=== PATIENT | male | born 1960 | race Caucasian/White ===

== ENCOUNTER 2016-09-23 20:06 | Inpatient (IN) | payer MEDICAID ==
[~2016-09-23] VITALS: Ht 182.9 cm; Wt 96.1 kg
[2016-09-23 20:18] LABS: BASOPHILS % (AUTO) 0.5 % (0.0-2.0); EOSINOPHILS % (AUTO) 0.1 % (1.0-6.0); HEMATOCRIT 40.1 % (41-53); HEMOGLOBIN 13.6 g/dL (13.5-17.5); LYMPHOCYTES # (AUTO) 1.6 K/uL (1.0-4.8); LYMPHOCYTES % (AUTO) 11.4 % (22.0-44.0); MEAN CORPUSCULAR HEMOGLOBIN 33.3 pg (26.0-34.0); MEAN CORPUSCULAR HGB CONC 33.9 G/dL (31.0-37.0); MEAN CORPUSCULAR VOLUME 98 fL (80-100); MONOCYTES # (AUTO) 1.2 K/uL (0.1-1.0); MONOCYTES % (AUTO) 8.2 % (2.0-9.0); NEUTROPHILS # (AUTO) 11.3 K/uL (1.8-7.7); NEUTROPHILS % (AUTO) 79.8 % (40.0-70.0); PLATELET COUNT (AUTO) 308 K/uL (150-450); RED BLOOD CELL COUNT(AUTO) 4.08 MIL/uL (4.50-5.90); RED CELL DISTRIBUTION WIDTH 13.6 % (11.5-14.5); WHITE BLOOD COUNT (AUTO) 14.2 K/uL (4.5-11.0)
[2016-09-23 20:31] LABS: ANION GAP 10 mmol/L (8-16); CALCIUM, TOTAL 8.8 mg/dL (8.8-10.5); CARBON DIOXIDE 24 mmol/L (22-29); CHLORIDE 101 mmol/L (98-107); CREATININE 0.98 mg/dL (0.60-1.30); GLOMERULAR FILTR. RATE CALC > 60 mL/min (>60); POTASSIUM 3.7 mmol/L (3.5-5.1); SODIUM SERUM 135 mmol/L (136-145); UREA NITROGEN, BLOOD 9 mg/dL (7-18)
[2016-09-23 20:39] LABS: ALANINE AMINOTRANSFERASE 35 U/L (12-78); ALBUMIN 4.1 g/dL (3.4-5.0); ASPARTATE AMINOTRANSFERASE 21 U/L (15-37); BILIRUBIN,TOTAL 0.9 mg/dL (0.1-1.0); TOTAL PROTEIN, SERUM 7.9 g/dL (6.4-8.2)
[2016-09-23] MEDS ORDERED: LORazepam 2 MG TABLET PO ONE (20:45)
[2016-09-23] MEDS ORDERED: HALOPERIDOL 5 MG TABLET PO ONE (20:45)
[2016-09-23] MEDS ORDERED: DiphenhydrAMINE HCL 50 MG/ML VIAL IM ONE (22:00)
[2016-09-23] MEDS ORDERED: HALOPERIDOL 5 MG TABLET PO PRN (22:30)
[2016-09-23] MEDS ORDERED: ZOLPIDEM TARTRATE 10 MG TABLET PO PRN (22:30)
[2016-09-24 01:39] VITALS: BP 146/78
[2016-09-24 07:27] VITALS: BP 114/68
[2016-09-24] MEDS: RisperiDONE 2 MG TABLET PO SCH ×2 (10:33→20:35)
[2016-09-24] MEDS: LORazepam 2 MG TABLET PO PRN (10:34)
[2016-09-24 12:46] VITALS: BP 114/72
[2016-09-24 16:50] VITALS: BP 132/74
[2016-09-24] MEDS ORDERED: IBUPROFEN 400 MG TABLET PO PRN (21:15)
[2016-09-24] MEDS ORDERED: ACETAMINOPHEN 325 MG TABLET PO PRN (21:15)
[2016-09-25 06:39] VITALS: BP 120/76
[2016-09-25 07:17] LABS: HEMOGLOBIN A1C 5.6 % (4.5-6.2)
[2016-09-25 07:26] LABS: THYROID STIMULATING HORMONE 1.79 uIU/mL (0.36-3.74)
[2016-09-25] MEDS: RisperiDONE 2 MG TABLET PO SCH ×2 (08:23→16:36)
[2016-09-25 08:30] VITALS: BP 118/77
[2016-09-25 19:17] VITALS: BP 122/76
[2016-09-26 08:35] VITALS: BP 143/90
[2016-09-26] MEDS: RisperiDONE 2 MG TABLET PO SCH (08:39)
[2016-09-26] MEDS: LORazepam 2 MG TABLET PO PRN (09:08)
[2016-09-26] MEDS ORDERED: RISP2 PO (10:59)
== END 2016-09-26 14:05 | disposition home or self-care (01) | DRG 751 ==
LOC: EMS 20:08 → AHU 09-24 00:05 → 3EI 09-24 16:31
PROVIDERS: ADMIT Psychiatry & Neurology Child & Adolescent Psychiatry; ATTEND Psychiatry & Neurology Child & Adolescent Psychiatry
DX: F29 Unspecified psychosis not due to a substance or known physiological condition (principal); E87.1 Hypo-osmolality and hyponatremia; F15.20 Other stimulant dependence, uncomplicated; F20.9 Schizophrenia, unspecified; F31.9 Bipolar disorder, unspecified; F32.9 Major depressive disorder, single episode, unspecified; D72.829 Elevated white blood cell count, unspecified; F99 Mental disorder, not otherwise specified; Z71.51 Drug abuse counseling and surveillance of drug abuser; Z79.899 Other long term (current) drug therapy
CPT/HCPCS: 83036; 84443; 99285; G0480; J1200